=== PATIENT | male | born 1975 | race Caucasian/White ===

== ENCOUNTER → 2022-05-19 | Outpatient (CLI) | payer OTHER, SELFPAY ==
[2022-05-19 15:41] LABS: Vitamin D,25 Hydroxy 45.6 ng/mL
== END | disposition home or self-care (01) ==
LOC: LABSPEC 15:03
DX: E55.9 Vitamin D deficiency, unspecified (principal)
CPT/HCPCS: 82306

== ENCOUNTER → 2022-10-04 | Outpatient (CLI) | payer OTHER, SELFPAY ==
[2022-10-04 09:08] LABS: Vitamin D,25 Hydroxy 26.5 ng/mL
[2022-10-04 10:31] LABS: Cholesterol 159 mg/dL (200); High Density Lipoprotein 48 mg/dL; Triglycerides 218 mg/dL; Very Low Density Lipoprotein 44 mg/dL (5-40)
== END | disposition home or self-care (01) ==
LOC: LAB 10:47
DX: Z00.00 Encounter for general adult medical examination without abnormal findings (principal)
CPT/HCPCS: 36415; 80061; 82306

== ENCOUNTER → 2023-04-25 | Outpatient (CLI) | payer OTHER, SELFPAY ==
[2023-04-25 09:36] LABS: AST(SGOT) 23 U/L (15-37); Alanine Aminotransfer ALT/SGPT 50 U/L (16-61); Albumin, Serum 3.7 g/dL (3.2-5.0); Alkaline Phosphatase 38 U/L (45-117); Anion Gap 5 (5-15); BUN 13 mg/dL (7-18); BUN/Creat Ratio 13.1 RATIO (10-20); Calcium,Total 9.3 mg/dL (8.5-10.1); Chloride 107 mmol/L (98-107); Cholesterol 146 mg/dL (200); Creatinine, Serum 0.99 mg/dL (0.70-1.30); EST Glomerular Filtration Rate 86 mL/min (>60); Est Glom Filt Rate - Afr Amer 105 mL/min (>60); Globulin 3.7 g/dL (2.2-4.2); Glucose 93 mg/dL (74-106); High Density Lipoprotein 44 mg/dL; Potassium 4.4 mmol/L (3.5-5.1); Protein, Total 7.4 g/dL (6.4-8.2); Sodium Level 140 mmol/L (136-145); Triglycerides 219 mg/dL; Very Low Density Lipoprotein 44 mg/dL (5-40)
== END | disposition home or self-care (01) ==
LOC: LABSPEC 08:58
DX: I10 Essential (primary) hypertension (principal); E78.5 Hyperlipidemia, unspecified
CPT/HCPCS: 80053; 80061

== ENCOUNTER → 2024-03-11 | Outpatient (CLI) | payer OTHER, SELFPAY ==
[2024-03-11 10:08] LABS: ALB/GLOB Ratio 0.8 RATIO (0.9-2.4); AST(SGOT) 28 U/L (15-37); Alanine Aminotransfer ALT/SGPT 54 U/L (16-61); Albumin, Serum 3.3 g/dL (3.2-5.0); Alkaline Phosphatase 35 U/L (45-117); Anion Gap 9 (5-15); BUN 12 mg/dL (7-18); BUN/Creat Ratio 12.2 RATIO (10-20); Calcium,Total 9.3 mg/dL (8.5-10.1); Chloride 107 mmol/L (98-107); Cholesterol 129 mg/dL (200); Creatinine, Serum 0.98 mg/dL (0.70-1.30); EST Glomerular Filtration Rate 87 mL/min (>60); Est Glom Filt Rate - Afr Amer 106 mL/min (>60); Globulin 4.4 g/dL (2.2-4.2); Glucose 86 mg/dL (74-106); High Density Lipoprotein 43 mg/dL; PSA,Total - Annual Screen 1.03 ng/mL (0.00-4.00); Potassium 4.5 mmol/L (3.5-5.1); Protein, Total 7.7 g/dL (6.4-8.2); Sodium Level 138 mmol/L (136-145); Triglycerides 92 mg/dL; Very Low Density Lipoprotein 18 mg/dL (5-40)
[2024-03-12 10:19] LABS: CPK Total, Creatine Kinase 132 U/L (39-308)
== END | disposition home or self-care (01) ==
LOC: LABSPEC 08:33
DX: I10 Essential (primary) hypertension (principal); M79.10 Myalgia, unspecified site; E78.5 Hyperlipidemia, unspecified; Z12.5 Encounter for screening for malignant neoplasm of prostate
CPT/HCPCS: 80053; 80061; 82550; 84153; G0103

== ENCOUNTER → 2025-03-11 | Outpatient (CLI) | payer OTHER, SELFPAY ==
[2025-03-11 12:19] LABS: AST(SGOT) 27 U/L (<=37); Alanine Aminotransfer ALT/SGPT 38 U/L (<=46); Albumin, Serum 4.4 g/dL (3.5-5.0); Alkaline Phosphatase 37 U/L (40-129); Anion Gap 15 (5-15); BUN 13 mg/dL (4-19); BUN/Creat Ratio 13.0 RATIO (10-20); Calcium,Total 10.1 mg/dL (7.6-11.0); Carbon Dioxide 22.4 mmol/L (21.0-32.0); Chloride 102 mmol/L (98-108); Cholesterol 149 mg/dL (<=200); Globulin 3.4 g/dL (2.2-4.2); Glucose 92 mg/dL (70-99); Low Density Lipoprotein Calc. 69 mg/dL; PSA,Total - Annual Screen 1.25 ng/mL (0.02-4.00); Potassium 4.6 mmol/L (3.3-5.1); Triglycerides 165 mg/dL; Uric Acid 7.4 mg/dL (3.5-7.2); Very Low Density Lipoprotein 33 mg/dL (5-40); cholesterol:hdl ratio screen 3.14
--- OUTSIDE RECORDS SUMMARY | 2025-03-11 18:13 | XMS RPT_ITS | CCD ---
Author Organization [facility] CliniSymi Care Team Providers Care Hospitality Specialist Name Role Phone Unavailable Primary Care Provider Anna SAMUELS AMUSEMENT RIDE INSPECTOR, MS [place] Primary Care Physician SIL CHESTER, SMOOTH Consulting Unavailable MARTHA CHESTER, DR EBONI Gray Attending Unavailable ABRIL AMUSEMENT RIDE INSPECTOR, MS [place] Primary Care Unavailable MARTHA CHESTER, DR EBONI Gray Attending Unavailable GERMAN GARCÍA, EMERSON Primary Care Unavailjazmine GARCÍA, EMERSON Attending Vik SAMUELS AMUSEMENT RIDE INSPECTOR, MS [place] Primary Care Unavailable Unavailable Primary Care Provider FRANCIS White Referring Unavailable NEY CADET Attending Unavailable NEY CADET Referring Unavailable Care Physician, No Primary Primary Care Unava ilable Assessment, Health Risk Attending Unavaila ble Care Physician, No Primary Primary Care Unava ilable GERMAN GARCÍA, EMERSON Allan Primary Care Unavai labmayuri LOERA DO, FREDDY DUNBAR Attending Unavail able EVARISTO TY, FREDDY DUNBAR Attending Unavail able GERMAN HUSSEIN-EMERSON OLIVO Primary Care Unavai labmayuri LOERA DO, FREDDY DUNBAR Attending Unavail able GERMAN HUSSEIN-GEOVANI, EMERSON Allan Primary Care Unavai lable Medications Current Medications Medication Drug Class(es) Dates Sig (Normalized) Sig (Original) atorvastatin 20 mg oral tablet (2 sources) HMG-CoA Reductase Inhibitor Start: 07-02-2022 atorvastatin 20 mg oral tablet 0 Refill(s) Start Date: 07/02/22 Status: Ordered B Complex 50 oral tablet (2 sources) Start: 09-08-2023 take 1 tablet by mouth once daily B Complex 50 oral tablet Dose = 1 tab(s), Oral, Daily, # 90 tab(s), 0 Refill(s) Start Date: 09/08/23 Status: Ordered escitalopram 10 mg oral tablet (2 sources) Serotonin Reuptake Inhibitor Start: 07-02-2022 escitalopram 10 mg oral tablet Dose : 10 mg = 1 tab(s), qDay, 0 Refill(s) Start Date: 07/02/22 Status: Ordered losartan potassium 100 mg oral tablet (1 source) Angiotensin 2 Receptor Danay Start: 11-01-2023 losartan 100 mg oral tablet Dose : 100 mg = 1 tab(s), Oral, qDay, # 30 tab(s), 3 Refill(s), Pharmacy: [facility]/pharmacy #[id number], 177, cm, 09/12/23 14:57:00 EST, Height, kg, 09/12/23 14:57:00 EST, Dosing Weight Start Date: 11/01/23 Status: Ordered 24 hr metoprolol succinate 100 mg extended release oral tablet (2 sources) beta-Adrenergic Danay Start: 09-12-2023 Toprol-XL 100 mg oral tablet, extended release Dose : 100 mg = 1 tab(s), Oral, qDay, # 90 tab(s), 0 Refill(s), other reason (Rx) Start Date: 09/12/23 Status: Ordered Multivitamin preparation (2 sources) Start: 09-08-2023 take 1 tablet by mouth once daily Multivitamin Dose = 1 tab(s), Oral, Daily, 0 Refill(s) Start Date: 09/08/23 Status: Ordered valsartan 320 mg oral tablet (1 source) Angiotensin 2 Receptor Danay Start: 09-12-2023 valsartan 320 mg oral tablet Dose : 320 mg = 1 tab(s), Oral, qDay, # 90 tab(s), 3 Refill(s), Pharmacy: [facility]/pharmacy #[id number], 177, cm, 09/12/23 14:57:00 EST, Height, kg, 09/12/23 14:57:00 EST, Dosing Weight Start Date: 09/12/23 Status: Ordered Vitamin D2 50 mcg (2000 intl units) oral capsule (2 sources) Start: 09-08-2023 Vitamin D2 50 mcg (2000 intl units) oral capsule Dose : 50 mcg = 1 cap(s), Oral, qDay, with food, # 60 cap(s), 0 Refill(s) Start Date: 09/08/23 Status: Ordered Problems Problem Classification Problem Date Documented Date Episodic/Chronic Anxiety disorders (2 sources) Anxiety 09-08-2023 Chronic Disorders of lipid metabolism (2 sources) Hyperlipidemia 09-11-2023 Chronic Essential hypertension (3 sources) Hypertensive disorder; Translations: [Essential (primary) hypertension] Onset: 03-28-2024 09-08-2023 Chronic Mood disorders (2 sources) Depressive disorder 09-08-2023 Chronic Nonmalignant breast conditions (2 sources) Abscess of the breast and nipple; Translations: [Abscess of the breast and nipple] Onset: 11-03-2023 Episodic Other circulatory disease (2 sources) Postural orthostatic tachycardia syndrome 09-12-2023 Episodic Other lower respiratory disease (4 sources) Dyspnea on exertion 09-08-2023 Episodic Other nutritional; endocrine; and metabolic disorders (2 sources) Body mass index 30+ - obesity 09-11-2023 Chronic Residual codes; unclassified (2 sources) Obstructive sleep apnea syndrome 09-08-2023 Chronic Results Test Name Value Interpretation Reference Range Facility MRI SPINE CERVICAL W/O CONTR Cheri 01-14-2025 MRI SPINE CERVICAL W/O CONTRAST ORIGINAL EXAMINATION: MRI OF THE CERVICAL SPINE WITHOUT CONTRAST 01/14/2025 7:34 am TECHNIQUE: Multiplanar multisequence MRI of the cervical spine was performed without the administration of intravenous contrast. COMPARISON: Cervical spine 04/30/2024. HISTORY: ORDERING SYSTEM PROVIDED HISTORY: Reason for Exam: Cervical radiculopathy 18 MO ELE NUMBNESS WORSE RT SIDE, NO PRIOR SURGERIES, NO CANCER LB T/A FINDINGS: BONES/ALIGNMENT: There is normal alignment of the spine. The vertebral body heights are maintained. The bone marrow signal appears unremarkable. SPINAL CORD: No abnormal cord signal is seen. SOFT TISSUES: No paraspinal mass identified. C2-C3: There is no significant disc protrusion, spinal canal stenosis or neural foraminal narrowing. C3-C4: There is no significant disc protrusion, spinal canal stenosis or neural foraminal narrowing. C4-C5: There is no significant disc protrusion, spinal canal stenosis or neural foraminal narrowing. C5-C6: There is no significant disc protrusion, spinal canal stenosis or neural foraminal narrowing. C6-C7: Broad-based 2 mm herniation of disc material eccentric to the right partially effacing the ventral CSF space without nerve root or cord impingement. C7-T1: There is no significant disc protrusion, spinal canal stenosis or neural foraminal narrowing. IMPRESSION: Small right paracentral herniation of disc material at C6-C7. Interpreted by: Jeff Ren Preliminary Report By: Jeff Ren Electronically signed By Jeff Ren Dictated Date: 01/14/2025 11:37:40 AM Prelim Date: 01/14/2025 11:39:25 AM Sign Date: 01/14/2025 11:39:25 AM Ordering Provider: FREDDY LOERA [facility] CBC-Complete Blood Cnt No Di ffon 10-08-2024 Erythrocyte distribution width (RBC) [Ratio] 13.1 % Normal 11.6-14.6 [facility] Comment on above: Performed By: #### L100.0500, L500.4100, L500.4050, [id number] #### [facility] [address] [place], [address] Hematocrit (Bld) [Volume fraction] 41.9 % Normal 40-54 [facility] Comment on above: Performed By: #### L100.0500, L500.4100, L500.4050, [id number] #### [facility] [address] [place], [address] Hemoglobin (Bld) [Mass/Vol] 13.6 g/dL Normal 13.0-16.5 [facility] Comment on above: Performed By: #### L100.0500, L500.4100, L500.4050, [id number] #### [facility] [address] [place], [address] MCH (RBC) [Entitic mass] 27.8 pg Normal 27.0-32.0 [facility] Comment on above: Performed By: #### L100.0500, L500.4100, L500.4050, [id number] #### [facility] [address] [place], [address] MCHC (RBC) [Mass/Vol] 32.5 g/dL Normal 32-36 [facility] Comment on above: Performed By: #### L100.0500, L500.4100, L500.4050, [id number] #### [facility] [address] [place], [address] MCV (RBC) [Entitic vol] 85.7 fL Normal 80-94 [facility] Comment on above: Performed By: #### L100.0500, L500.4100, L500.4050, [id number] #### [facility] [address] [place], [address] Platelet mean volume (Bld) [Entitic vol] 9.2 fL Normal 6.2-12.0 [facility] Comment on above: Performed By: #### L100.0500, L500.4100, L500.4050, [id number] #### [facility] [address] [place], [address] Platelets (Bld) [#/Vol] 291 10*3/uL Normal 150-450 [facility] Comment on above: Performed By: #### L100.0500, L500.4100, L500.4050, [id number] #### [facility] [address] [place], [address] RBC (Bld) [#/Vol] 4.89 10*6/uL Normal 4.6-6.2 [facility] Comment on above: Performed By: #### L100.0500, L500.4100, L500.4050, [id number] #### [facility] [address] [place], [address] RDW SD 40.3 fl Normal 35.1-43.9 [facility] Comment on above: Performed By: #### L100.0500, L500.4100, L500.4050, [id number] #### [facility] [address] [place], [address] WBC (Bld) [#/Vol] 9.3 10*3/uL Normal 4.4-11.0 [facility] Comment on above: Performed By: #### L100.0500, L500.4100, L500.4050, [id number] #### [facility] [address] [place], [address] Comprehensive Metabolic Prof ilon 10-08-2024 Albumin [Mass/Vol] 3.9 g/dL Normal 3.2-5.0 [facility] Comment on above: Performed By: #### L100.0500, L500.4100, L500.4050, [id number] #### [facility] [address] [place], [address] Albumin/Globul in [Mass ratio] 1.1 {ratio} Normal 0.9-2.4 [facility] Comment on above: Performed By: #### L100.0500, L500.4100, L500.4050, [id number] #### [facility] [address] [place], [address] ALK P 37 U/L Low 45-117 [facility] Comment on above: Performed By: #### L100.0500, L500.4100, L500.4050, [id number] #### [facility] [address] [place], [address] ALT [Catalytic activity/Vol] 59 U/L Normal 16-61 [facility] Comment on above: Performed By: #### L100.0500, L500.4100, L500.4050, [id number] #### [facility] [address] [place], [address] AST [Catalytic activity/Vol] 32 U/L Normal 15-37 [facility] Comment on above: Performed By: #### L100.0500, L500.4100, L500.4050, [id number] #### [facility] [address] [place], [address] Bilirubin [Mass/Vol] 0.40 mg/dL Normal 0.20-1.00 [facility] Comment on above: Result Comment: For patients on eltrombo pag therapy, use of Dimension [place] TBIL is not recommended. Performed By: #### L 100.0500, L500.4100, L500.4050, [id number] #### [facility] [address] [place], [address] BUN/CRE 14.3 RATIO Normal 10-20 [facility] Comment on above: Performed By: #### L100.0500, L500.4100, L500.4050, [id number] #### [facility] [address] [place], [address] CA,Total 9.1 mg/dL Normal 8.5-10.1 [facility] Comment on above: Performed By: #### L100.0500, L500.4100, L500.4050, [id number] #### [facility] [address] [place], [address] Chloride [Moles/Vol] 104 mmol/L Normal 98-107 [facility] Comment on above: Performed By: #### L100.0500, L500.4100, L500.4050, [id number] #### [facility] [address] [place], [address] CO2 [Moles/Vol] 24.0 mmol/L Normal 21.0-32.0 [facility] Comment on above: Performed By: #### L100.0500, L500.4100, L500.4050, [id number] #### [facility] [address] [place], [address] Creatinine [Mass/Vol] 0.98 mg/dL Normal 0.70-1.30 [facility] Comment on above: Result Comment: The validity of the calc ulated GFR GFRAA in patients over 70 years has not been determined. Clinical correlation is essential. Performed By: #### L 100.0500, L500.4100, L500.4050, [id number] #### [facility] [address] [place], [address] EST GFR - AA 106 mL/min Normal >60 [facility] Comment on above: Result Comment: GFR Roderick c Performed By: #### L 100.0500, L500.4100, L500.4050, [id number] #### [facility] [address] [place], [address] GAP 11 Normal 5-15 [facility] Comment on above: Performed By: #### L100.0500, L500.4100, L500.4050, [id number] #### [facility] [address] [place], [address] GFR/1.73 sq M.predicted among non-blacks MDRD (S/P/Bld) [Vol rate/Area] 87 mL/min/{1.73_m2} Normal >60 [facility] Comment on above: Result Comment: Non- GFR Calc Performed By: #### L 100.0500, L500.4100, L500.4050, [id number] #### [facility] [address] [place], [address] Globulin (S) [Mass/Vol] 3.7 g/dL Normal 2.2-4.2 [facility] Comment on above: Performed By: #### L100.0500, L500.4100, L500.4050, [id number] #### [facility] [address] [place], [address] Glucose [Mass/Vol] 84 mg/dL Normal 74-106 [facility] Comment on above: Performed By: #### L100.0500, L500.4100, L500.4050, [id number] #### [facility] [address] [place], [address] Potassium [Moles/Vol] 4.2 mmol/L Normal 3.5-5.1 [facility] Comment on above: Performed By: #### L100.0500, L500.4100, L500.4050, [id number] #### [facility] [address] [place], [address] Sodium [Moles/Vol] 139 mmol/L Normal 136-145 [facility] Comment on above: Performed By: #### L100.0500, L500.4100, L500.4050, [id number] #### [facility] [address] [place], [address] T PROT 7.6 g/dL Normal 6.4-8.2 [facility] Comment on above: Performed By: #### L100.0500, L500.4100, L500.4050, [id number] #### [facility] [address] [place], [address] Urea nitrogen [Mass/Vol] 14 mg/dL Normal 7-18 [facility] Comment on above: Performed By: #### L100.0500, L500.4100, L500.4050, [id number] #### [facility] [address] [place], [address] Hemoglobin A1con 10-08-2024 HbA1c (Bld) [Mass fraction] 5.7 % High 3.8-5.6 [facility] Comment on above: Result Comment: Normal < 5.7 % Prediabetic 5.7 - 6.4 % Diabetic >or= 6.5 % Please note range changes. Performed By: #### L 100.0500, L500.4100, L500.4050, L501.9985 #### [facility] [address] [place], [address] Lipid Profileon 10-08-2024 Cholesterol [Mass/Vol] 156 mg/dL Normal 200 [facility] Comment on above: Result Comment: <200 mg/dL Desirable 200-240 mg/dL Borderline >240 mg/dL High Risk Performed By: #### L 100.0500, L500.4100, L500.4050, [id number] #### [facility] [address] [place], [address] Cholesterol in HDL [Mass/Vol] 54 mg/dL Normal [facility] Comment on above: Result Comment: The drugs N-Acetylcystei ne and Metamizole may falsely depress this assay. Reference Range HDL <40 mg/dL Low HDL Cholesterol HDL >or= 60 mg/dL High HDL Cholesterol Performed By: #### L 100.0500, L500.4100, L500.4050, [id number] #### [facility] [address] [place], [address] Cholesterol in LDL [Mass/Vol] 68 mg/dL Normal 0-130 [facility] Comment on above: Performed By: #### L100.0500, L500.4100, L500.4050, [id number] #### [facility] [address] [place], [address] Cholesterol in VLDL [Mass/Vol] 34 mg/dL Normal 5-40 [facility] Comment on above: Performed By: #### L100.0500, L500.4100, L500.4050, [id number] #### [facility] [address] [place], [address] Triglyceride [Mass/Vol] 170 mg/dL Normal [facility] Comment on above: Result Comment: The drugs N-Acetylcystei ne and Metamizole may falsely depress this assay. Serum Triglycerides Reference Interval Normal <150 mg/dL Borderline high 150 - 199 mg/dL High 200 - 499 mg/dL Very High > or = 500 mg/dL Performed By: #### L 100.0500, L500.4100, L500.4050, L501.9985 #### [facility] [address] [place], [place], [address] XR FOOT 3V AP/LAT/OBL LTon 0 09-02-2024 XR FOOT 3V AP/LAT/OBL LT * * *Final Report* * * DATE OF EXAM: Sep 02 2024 5:39PM RNX [id number] - XR FOOT 3V AP/LAT/OBL LT / PROCEDURE REASON: LT GREAT TOE PAIN; L FOOT SWELLING * * * * Physician Interpretation * * * * XR FOOT 3V AP/LAT/OBL LT Ordering Physician: FRANCIS ASKEW Clinical Statement: Pain and swelling great toe FINDINGS: No acute fracture or dislocation. The alignment is normal. No erosive arthropathy or significant degenerative change. There is soft tissue swelling of the great toe. No soft tissue gas, radiopaque foreign body, or bone erosion. Posterior and plantar calcaneal enthesopathy. IMPRESSION: No acute osseous abnormality or significant degenerative change. Soft tissue swelling great toe. Business Continuity Strategy Director: KANDI Transcribe Date/Time: Sep 05 2024 4:30A Dictated by : DIONNE WHALEN MD This examination was interpreted and the report reviewed and electronically signed by: DIONNE WHALEN MD on Sep 05 2024 4:31AM EST [id number] Normal [facility] CPK Total, Creatine Kinaseon 03-12-2024 CPK TOTAL 132 U/L Normal 39-308 [facility] Comment on above: Performed By: #### L500.4100, L500.4050, L501.3620, L501.9910 #### [facility] [address] [place], [address] Comprehensive Metabolic Prof ilon 03-11-2024 Albumin [Mass/Vol] 3.3 g/dL Normal 3.2-5.0 [facility] Comment on above: Performed By: #### L500.4100, L500.4050, L501.3620, L501.9910 #### [facility] [address] [place], [address] Albumin/Globul in [Mass ratio] 0.8 {ratio} Low 0.9-2.4 [facility] Comment on above: Performed By: #### L500.4100, L500.4050, L501.3620, L501.9910 #### [facility] [address] [place], [address] ALK P 35 U/L Low 45-117 [facility] Comment on above: Performed By: #### L500.4100, L500.4050, L501.3620, L501.9910 #### [facility] [address] [place], [address] ALT [Catalytic activity/Vol] 54 U/L Normal 16-61 [facility] Comment on above: Performed By: #### L500.4100, L500.4050, L501.3620, L501.9910 #### [facility] [address] [place], [address] AST [Catalytic activity/Vol] 28 U/L Normal 15-37 [facility] Comment on above: Performed By: #### L500.4100, L500.4050, L501.3620, L501.9910 #### [facility] [address] [place], [address] Bilirubin [Mass/Vol] 0.50 mg/dL Normal 0.20-1.00 [facility] Comment on above: Result Comment: For patients on eltrombo pag therapy, use of Dimension [place] TBIL is not recommended. Performed By: #### L 500.4100, L500.4050, L501.3620, L501.9910 #### [facility] [address] [place], [address] BUN/CRE 12.2 RATIO Normal 10-20 [facility] Comment on above: Performed By: #### L500.4100, L500.4050, L501.3620, L501.9910 #### [facility] [address] [place], [address] CA,Total 9.3 mg/dL Normal 8.5-10.1 [facility] Comment on above: Performed By: #### L500.4100, L500.4050, L501.3620, L501.9910 #### [facility] [address] [place], [address] Chloride [Moles/Vol] 107 mmol/L Normal 98-107 [facility] Comment on above: Performed By: #### L500.4100, L500.4050, L501.3620, L501.9910 #### [facility] [address] [place], [address] CO2 [Moles/Vol] 22.0 mmol/L Normal 21.0-32.0 [facility] Comment on above: Performed By: #### L500.4100, L500.4050, L501.3620, L501.9910 #### [facility] [address] [place], [address] Creatinine [Mass/Vol] 0.98 mg/dL Normal 0.70-1.30 [facility] Comment on above: Result Comment: The validity of the calc ulated GFR GFRAA in patients over 70 years has not been determined. Clinical correlation is essential. Performed By: #### L 500.4100, L500.4050, L501.3620, L501.9910 #### [facility] [address] [place], [address] EST GFR - AA 106 mL/min Normal >60 [facility] Comment on above: Result Comment: GFR Roderick c Performed By: #### L 500.4100, L500.4050, L501.3620, L501.9910 #### [facility] [address] [place], [address] GAP 9 Normal 5-15 [facility] Comment on above: Performed By: #### L500.4100, L500.4050, L501.3620, L501.9910 #### [facility] [address] [place], [address] GFR/1.73 sq M.predicted among non-blacks MDRD (S/P/Bld) [Vol rate/Area] 87 mL/min/{1.73_m2} Normal >60 [facility] Comment on above: Result Comment: Non- GFR Calc Performed By: #### L 500.4100, L500.4050, L501.3620, L501.9910 #### [facility] [address] [place], [address] Globulin (S) [Mass/Vol] 4.4 g/dL High 2.2-4.2 [facility] Comment on above: Performed By: #### L500.4100, L500.4050, L501.3620, L501.9910 #### [facility] [address] [place], [address] Glucose [Mass/Vol] 86 mg/dL Normal 74-106 [facility] Comment on above: Performed By: #### L500.4100, L500.4050, L501.3620, L501.9910 #### [facility] [address] [place], [address] Potassium [Moles/Vol] 4.5 mmol/L Normal 3.5-5.1 [facility] Comment on above: Performed By: #### L500.4100, L500.4050, L501.3620, L501.9910 #### [facility] [address] [place], [address] Sodium [Moles/Vol] 138 mmol/L Normal 136-145 [facility] Comment on above: Performed By: #### L500.4100, L500.4050, L501.3620, L501.9910 #### [facility] [address] [place], [address] T PROT 7.7 g/dL Normal 6.4-8.2 [facility] Comment on above: Performed By: #### L500.4100, L500.4050, L501.3620, L501.9910 #### [facility] [address] [place], [address] Urea nitrogen [Mass/Vol] 12 mg/dL Normal 7-18 [facility] Comment on above: Performed By: #### L500.4100, L500.4050, L501.3620, L501.9910 #### [facility] [address] [place], [address] Lipid Profileon 03-11-2024 Cholesterol [Mass/Vol] 129 mg/dL Normal 200 [facility] Comment on above: Result Comment: <200 mg/dL Desirable 200-240 mg/dL Borderline >240 mg/dL High Risk Performed By: #### L 500.4100, L500.4050, L501.3620, L501.9910 #### [facility] [address] [place], [address] Cholesterol in HDL [Mass/Vol] 43 mg/dL Normal [facility] Comment on above: Result Comment: The drugs N-Acetylcystei ne and Metamizole may falsely depress this assay. Reference Range HDL <40 mg/dL Low HDL Cholesterol HDL >or= 60 mg/dL High HDL Cholesterol Performed By: #### L 500.4100, L500.4050, L501.3620, L501.9910 #### [facility] [address] [place], [address] Cholesterol in LDL [Mass/Vol] 68 mg/dL Normal 0-130 [facility] Comment on above: Performed By: #### L500.4100, L500.4050, L501.3620, L501.9910 #### [facility] [address] [place], [address] Cholesterol in VLDL [Mass/Vol] 18 mg/dL Normal 5-40 [facility] Comment on above: Performed By: #### L500.4100, L500.4050, L501.3620, L501.9910 #### [facility] [address] [place], [address] Triglyceride [Mass/Vol] 92 mg/dL Normal [facility] Comment on above: Result Comment: The drugs N-Acetylcystei ne and Metamizole may falsely depress this assay. Serum Triglycerides Reference Interval Normal <150 mg/dL Borderline high 150 - 199 mg/dL High 200 - 499 mg/dL Very High > or = 500 mg/dL Performed By: #### L 500.4100, L500.4050, L501.3620, L501.9910 #### [facility] [address] [place], [address] PSA,Total - Annual Screenon 03-11-2024 PSA,TOT SCREEN 1.03 ng/mL Normal 0.00-4.00 [facility] Comment on above: Result Comment: This test was performed using the TPSA assay method for the [employer] chemistry system. Values obtained with different assay methods cannot be used interchangably. When changing PSA assays in the course of monitoring a patient, additional sequential testing should be carried out to confirm baseline values. Performed By: #### L 500.4100, L500.4050, L501.3620, L501.9910 #### [facility] [address] [place], [address] MA MAMMOGRAM DIAGNOSTIC BILA TERAL W/TOMOon 03-08-2024 MA MAMMOGRAM DIAGNOSTIC BILATERAL W/JEREMY ORIGINAL FROM: [facility] [address] [place] [address] PROCEDURE FOR: VERÓNICA Simon [place] [address] Home: PID#: [id number] Exam#: [id number] : 1975 Age: 47 TO: EMERSON PORTER [facility] [place] [address] [address] EXAMINATION: DIAGNOSTIC BILATERAL MAMMOGRAM WITH TOMOSYNTHESIS, 11/03/2023 8:41 am TECHNIQUE: Tomosynthesis was performed as part of the diagnostic bilateral mammogram. 2D standard and 3D tomosynthesis combination imaging performed. Current study was also evaluated with a Computer Aided Detection (CAD) system. COMPARISON: None. HISTORY: ORDERING SYSTEM PROVIDED HISTORY: Reason for Exam: ABSCESS OF LEFT BREAST AND NIPPLE FINDINGS: BREAST DENSITY: Predominantly Fatty There is gynecomastia within the left breast which likely explains the patient's symptoms. No additional significant masses, calcifications, or other findings. IMPRESSION: No mammographic evidence of malignancy. Left breast gynecomastia which likely explains the patient's symptoms.Clinical follow up is recommended. I have personally reviewed the images of this examination and agree with the resident's findings and interpretations. BIRADS: MAMMOGRAM BI-RADS: 2: Benign finding RECALL: none RECALL TYPE: mammo LETTER SENT: Gynecomastia Interpreted by: Ngozi Mccallum MD Preliminary Report By: Theo Catalan Electronically signed By Ngozi Mccallum MD Dictated Date: 11/03/2023 10:27:17 AM Prelim Date: 11/03/2023 6:53:00 PM Sign Date: 11/03/2023 6:53:00 PM Ordering Provider: EMERSON PORTER CLINICAL: PALPABLE LUMP LEFT BREAST. FOCAL PAIN LEFT BREAST. BASELINE. Account Solutions Analyst: CLEOPATRA TURNER(Khoi)(M) letter sent: Gynecomastia Mammogram BI-RADS: 2 Benign Normal [facility] ([place]) Basophil percentageon 2022 Bilirubin [Mass/Vol] 0.40 mg/dL 0.20-1.00 [facility] Comment on above: For patients on eltrombopag therapy, use of Dimension [place] TBIL is not recommended. Chloride [Moles/Vol] 107 mmol/L 98-107 [facility] Cholesterol [Mass/Vol] 146 mg/dL <200 [facility] Comment on above: <200 mg/dL Desirable 200-240 mg/dL Borde rline >240 mg/dL High Risk Glucose [Mass/Vol] 93 mg/dL 74-106 [facility] Potassium [Moles/Vol] 4.4 mmol/L 3.5-5.1 [facility] Protein [Mass/Vol] 7.4 g/dL 6.4-8.2 [facility] Sodium [Moles/Vol] 140 mmol/L 136-145 [facility] Triglyceride [Mass/Vol] 219 mg/dL <199 [facility] Comment on above: The drugs N-Acetylcysteine and Metamizol e may falsely depress this assay.Serum Triglycerides Reference Interval Normal <150 mg/dL Borderline high 150 - 199 mg/dL High 200 - 499 mg/dL Very High > or = 500 mg/dL Laboratory - Chemistry and C hemistry - challengeon 04-25-2023 ALP [Catalytic activity/Vol] 38 U/L 45-117 [facility] ALT [Catalytic activity/Vol] 50 U/L 16-61 [facility] CO2 [Moles/Vol] 28.0 mmol/L 21.0-32.0 [facility] Globulin (S) [Mass/Vol] 3.7 g/dL 2.2-4.2 [facility] Urea nitrogen/Creat inine [Mass ratio] 13.1 mg/mg 10-20 [facility] No Panel Informationon 04-25 Estimated GFR (MDRD) Amer 105 mL/min >60 [facility] Comment on above: GFR Calc Estimated GFR (MDRD) Non-Af Amer 86 mL/min >60 [facility] Comment on above: Non- GFR Calc Serum or plasma albumin esperanza urement (mass/volume)on 04-25-2023 Albumin [Mass/Vol] 3.7 g/dL 3.2-5.0 [facility] Serum or plasma albumin/glob ulin mass ratioon 04-25-2023 Albumin/Globul in [Mass ratio] 1.0 {ratio} 0.9-2.4 [facility] Serum or plasma calcium esperanza urement (mass/volume)on 04-25-2023 Calcium [Mass/Vol] 9.3 mg/dL 8.5-10.1 [facility] Serum or plasma cholesterol in HDL measurement (mass/volume)on 04-25-2023 Cholesterol in HDL [Mass/Vol] 44 mg/dL >40 [facility] Comment on above: The drugs N-Acetylcysteine and Metamizol e may falsely depress this assay. Reference Range HDL <40 mg/dL Low HDL Cholesterol HDL >or= 60 mg/dL High HDL Cholesterol Serum or plasma cholesterol in VLDL measurement (mass/volume)on 04-25-2023 Cholesterol in VLDL [Mass/Vol] 44 mg/dL 5-40 [facility] Serum or plasma creatinine m easurement (mass/volume)on 04-25-2023 Creatinine [Mass/Vol] 0.99 mg/dL 0.70-1.30 [facility] Comment on above: The validity of the calculated GFR & GFR AA in patients over 70 years has not been determined. Clinical correlation is essential. Serum or plasma low density lipoprotein (LDL) cholesterol measurement (mass/volume)on 04-25-2023 Cholesterol in LDL [Mass/Vol] 58 mg/dL 0-130 [facility] Serum or plasma urea nitroge n measurement (mass/volume)on 04-25-2023 Urea nitrogen [Mass/Vol] 13 mg/dL 7-18 [facility] Thin prep Papanicolaou smear with manual screeningon 04-25-2023 Thin prep Papanicolaou smear with manual screening 23 U/L 15-37 [facility] Thin prep Papanicolaou smear with manual screening 5 5-15 [facility] No Panel Informationon 05-19 Vitamin D 25-Hydroxy 45.6 ng/mL [facility] Work Phone: Comment on above: Vitamin D 25(OH) Status Range Deficiency <20 ng/mL (50nmol/L) Insufficiency 20 - 30 ng/mL (50 - 75 nmol/L) Sufficiency 30 - 100 ng/mL (75 - 250 nmol/L) Toxicity >100 ng/mL (>250 nmol/L) PHCon 05-28-2021 [facility] DATE OF SERVICE: 08/2020 SUBJECTIVE: This is a 45-year-old here today with cough, runny nose, and a headache for 2 or 3 days. Feels like there is drainage in the back of the throat into his chest. Not really coughing up phlegm. He is not wheezing, short of breath. No fever or chills. He did have a COVID vaccine and had a negative COVID test at home yesterday. No known COVID exposures. PAST MEDICAL HISTORY: Significant for some hypertension. MEDICATIONS: 1. Metoprolol. 2. Atorvastatin. 3. Citalopram. SOCIAL HISTORY: He is a nonsmoker. Drinks alcohol occasionally. FAMILY HISTORY: Hypertension. OBJECTIVE: Vitals are stable. He is afebrile. TMs clear. Nares clear. Pharynx clear. Neck is supple. No lymphadenopathy. Lungs are clear. No wheezes, rales, or rhonchi. Heart: Regular. No murmurs, rubs, or gallops. [facility] PATIENT NAME: VERÓNICA HOLLOWAY [facility] [address] MEDICAL REC #: [id number] [place] [address] [facility]ARE PHYSICIAN IMPRESSION: Viral upper respiratory infection. PLAN: Bromfed DM syrup 2 teaspoons q.6 h. p.r.n., Tylenol, Motrin, rest, fluids, and follow up with primary care if not improving in 4 to 5 days. Yanick Salgado MD /[id number] SSI File#: [id number] END OF DOCUMENT / CHANGE LOG FOLLOWS Last Edited By Elec. Signed By Yanick Salgado MD #Yanick Joseph MD #MANAN on 06/01/2021 08:34 ET on 06/01/2021 08:34 ET Revision Number - 2 Verified/Reviewed by 06/01/21 0835 MANAN [facility] PATIENT NAME: VERÓNICA HOLLOWAY [address] [facility] [address] MEDICAL REC #: [id number] [place] [address] [facility] REPORT STATCARE PHYSICIAN Normal [facility] REPORT [facility] Encounters Encounter Date Encounter Type Care Provider Facility Start: 02-06-2025 ambulatory EMERSON Arthur [employer] Facility:A Start: 01-14-2025 End: 01-14-2025 ambulatory FREDDY LOERA DO Facility:A Start: 11-29-2024 ambulatory FREDDY LOERA DO Facility:A Start: 10-08-2024 ambulatory Health Risk Assessment Facility:[facility] Start: 09-02-2024 ambulatory FRANCIS ASKEW Faci lity:[id number] Start: 09-02-2024 End: 09-02-2024 Subsequent hospital visit by physician Brianne [facility] Work Phone: [facility] Start: 03-11-2024 End: 03-11-2024 ambulatory NEY CADET Facility:[facility] Start: 01-04-2024 End: 01-05-[address] EBONI THOMAS MD Facility:A Start: 11-03-2023 End: 11-04-2023 ambulatory EMERSON PORTER [employer] Facility:A Start: 11-03-2023 End: 11-03-2023 Patient encounter procedure EMERSON PORTER [employer] [facility] Start: 09-29-2023 End: 09-30-2023 ambulatory SMOOTH MUJICA MD Facility:A Start: 09-29-2023 End: 09-29-[address] EBONI THOMAS MD [facility] Start: 04-25-2023 End: 04-25-2023 ambulatory [facility] Work Phone: Start: 04-25-2023 End: 04-25-2023 Patient encounter procedure [facility] Spec[facility] Work Phone: Start: 05-19-2022 End: 05-19-2022 ambulatory [facility] Work Phone: Start: 05-19-2022 End: 05-19-2022 Patient encounter procedure [facility] Start: 05-31-2021 Patient encounter procedure Yanick Salgado MD Work Phone: [facility] Start: 05-31-2021 Progress Note Yanick adams MD Work Phone: [facility] Plan of Treatment Date Care Activity Detail Author Start: 04-28-2024 Covid-19 Vaccine () Covid-19 Vaccine () [facility] Start: 04-28-2024 Influenza vaccination Influenza Vacc ine (#1) [facility] Start: 2022 Diabetes Screening Diabetes Screenin g [facility] Start: 2022 Screening for malign ant neoplasm of colon [facility] Start: 06-13-2019 Urine microalbumin profile DTa P,Tdap,Td Vaccine (2 - Td or Tdap) [facility] Start: 2012 Lipid panel Lipid Screening [facility] Start: 1996 Hepatitis B Vaccine (1 of 3 - 19+ 3-dose series) Hepatitis B Vaccine (1 of 3 - 19+ 3-dose series) [facility] Start: 12-13-1995 Anxiety Screening Anxiety Screening [facility] Start: 12-13-1995 Depression Screening Depression Scre enchase [facility] Start: 12-13-1995 Hepatitis C screening Hepatitis C Sc adela [facility] Start: 12-13-1995 HIV screening HIV Screening [facility] Immunizations Immunization Date Immunization Notes Care Provider Fa cility 06-29-2022 influenza virus vacc ine, unspecified formulation [facility] [place] Work Phone: [facility] Payers Date Payer Category Payer Unknown MMO MMO MHS [id number] 2024-Present [phone] [address] [place] [address] Indemnity [id number] 2024 Self-pay 2023 Unknown [id number] 1975 Unknown [id number] 1975 Unknown [id number] 1975 Unknown [id number] 1975 Unknown [id number] 1975 Unknown [id number] 1975 Unknown [id number] Unknown [id number] Unknown [id number] Social History Date Type Detail Facility Tobacco smoking status NHIS Tobacco smoking consumption unknown [facility] Start: 1975 Sex Assigned At Not on file [facility] Start: 1975 Sex Assigned At Male [facility] Start: 09-12-2023 Tobacco smoking status Never smoked tobacco (finding) [facility] Gender identity Not on file [facility] History of Present illness Narrative 09-02-2024 Sheela Feng RT(R) - 09/02/2024 5:40 PM EST Note Date & Type Note Facility 09-02-2024 History of Presen t illness Narrative Radiology Service Progress Note PATIENT NAME: Verónica Holloway DATE OF SERVICE: September 02, 2024 TIME: 5:40 PM PATIENT IDENTITY VERIFICATION COMPLETED USING TWO (2) IDENTIFIERS: Name and Date of confirmed by patient verbally. FALL SCREENING: Has the patient had 2 falls in the last year or 1 fall with injury or currently using an Ambulatory Assistive Device (Walker, Cane, Wheelchair, Crutches, etc.)? No PATIENT GENDER DATA: Male PATIENT RELEVANT IMPLANT DATA REVIEWED: Not Applicable PATIENT PRESENTS WITH AN IMPLANTABLE OR ATTACHED RAIL WALKER: No RADIOLOGY DEPARTMENT: General X-ray: Exam(s) Completed: Lower Extremity X-Ray(s): Foot, Left PERIPHERAL IV DATA: Not applicable SIGNED BY: RT Clinton(Khoi) September 02, 2024 5:40 PM documented in this encounter [facility] Progress note 09-02-2024 Note Date & Type Note Facility 09-02-2024 Note HNO ID: [id number] Author: SHEELA FENG RT(Khoi) Service: Radiology Author Type: Technologist Type: Progress Notes Filed: 09/02/2024 17:40 Note Text: Radiology Service Progress Note PATIENT NAME: Verónica Holloway DATE OF SERVICE: September 02, 2024 TIME: 5:40 PM PATIENT IDENTITY VERIFICATION COMPLETED USING TWO (2) IDENTIFIERS: Name and Date of confirmed by patient verbally. FALL SCREENING: Has the patient had 2 falls in the last year or 1 fall with injury or currently using an Ambulatory Assistive Device (Walker, Cane, Wheelchair, Crutches, etc.)? No PATIENT GENDER DATA: Male PATIENT RELEVANT IMPLANT DATA REVIEWED: Not Applicable PATIENT PRESENTS WITH AN IMPLANTABLE OR ATTACHED RAIL WALKER: No RADIOLOGY DEPARTMENT: General X-ray: Exam(s) Completed: Lower Extremity X-Ray(s): Foot, Left PERIPHERAL IV DATA: Not applicable SIGNED BY: RT Clinton(R) September 02, 2024 5:40 PM [facility] Clinical Note 09-29-2023 Note Date & Type Note Facility 09-29-2023 Note Date of Service 09/29/2023 Procedure: Exercise treadmill stress test ------- Patient underwent exercise treadmill stress test using Doc protocol. Patient achieved 4 stages in 9:30 minutes. Patient achieved 10.90 METS which is average functional capacity given patient's age and gender. Exercise as terminated due to SOB and leg fatigue. Patient had a baseline heart rate of 72 bpm and it peaked at 173 bpm at peak exercise, which is 98% of the predicted maximal heart rate. The heart rate recovery was normal. Patient had a resting blood pressure of 132/78 mmHg and this peaked at 164/80 mmHg with exercise, which is a normal response. The patient did experience SOB and leg fatigue, which all resolved at the end of the test. Patient's baseline EKG showed normal sinus rhythm with no ischemic ST segment changes. During the stress, there were no EKG changes diagnostic of ischemia. ------- Impression: 1. ECG portion of the exercise stress test is negative for inducible ischemia. 2. Appropriate heart rate and blood pressure response with exercise. 3. Patient did experience some shortness of breath during the protocol. Patient did not report any significant chest pain. 4. No significant arrhythmias noted during the exercise stress test. 5. Average functional capacity. See addendum to this note by the attending physician for additional comments. Digitally Signed by SMOOTH MUJICA MD on 09/29/2023 03:29 PM Digitally Signed by BETTINA VALERIO MD [facility] History of Present illness Narrative 05-31-2021 Yanick Salgado MD - 05/31/2021 12:57 PM EDT Note Date & Type Note Facility 05-31-2021 History of Present illness Narrative DATE OF SERVICE: 05/28/2021 SUBJECTIVE: This is a 45-year-old here today with cough, runny nose, and a headache for 2 or 3 days. Feels like there is drainage in the back of the throat into his chest. Not really coughing up phlegm. He is not wheezing, short of breath. No fever or chills. He did have a COVID vaccine and had a negative COVID test at home yesterday. No known COVID exposures. PAST MEDICAL HISTORY: Significant for some hypertension. MEDICATIONS: 1. Metoprolol. 2. Atorvastatin. 3. Citalopram. SOCIAL HISTORY: He is a nonsmoker. Drinks alcohol occasionally. FAMILY HISTORY: Hypertension. OBJECTIVE: Vitals are stable. He is afebrile. TMs clear. Nares clear. Pharynx clear. Neck is supple. No lymphadenopathy. Lungs are clear. No wheezes, rales, or rhonchi. Heart: Regular. No murmurs, rubs, or gallops. IMPRESSION: Viral upper respiratory infection. PLAN: Bromfed DM syrup 2 teaspoons q.6 h. p.r.n., Tylenol, Motrin, rest, fluids, and follow up with primary care if not improving in 4 to 5 days. Yanick Salgado MD /[id number] SSI File#: [id number] END OF DOCUMENT / CHANGE LOG FOLLOWS Last Edited By Elec. Signed By Yanick Salgado MD #HUDMA Yanick Salgado MD #HUDMA on 06/01/2021 08:34 ET on 06/01/2021 08:34 ET Revision Number - 2 ^^^ Verified/Reviewed by 06/01/21 Iveth HINKLE [facility] PATIENT NAME: VERÓNICA HOLLOWAY [address] [facility] [address] MEDICAL REC #: [id number] [place] [address] [facility] STATCARE PHYSICIAN documented in this encounter [facility] Evaluation + Plan note Radiology Note Date & Type Note Facility Evaluation + Plan note Future Appointments Appointment Date:10/31/2023 08:00:00 AM Scheduled Provider: Location:[facility] Appointment Type:MA Mammogram Diagnostic Left w/ Jeremy Appointment Date:10/31/2023 08:30:00 AM Scheduled Provider: Location:[facility] Appointment Type:US Breast Left Limited Future Scheduled TestsMA Mammo Diagnostic Left w/ Jeremy 10/31/23US Breast Left Limited 09/20/23US Breast Left Limited 10/31/23 [facility] Evaluation + Plan note Radiology Note Date & Type Note Facility Evaluation + Plan note Future Appointments Appointment Date:12/06/2023 02:30:00 PM Scheduled Provider: Location:[facility] Appointment Type:CV OV Future Scheduled TestsUS Breast Left Limited 09/20/23 [facility] Evaluation note Note Date & Type Note Facility Evaluation note No assessment information availa [facility] Work Phone: Hospital course Narrative Note Date & Type Note Facility Hospital course Narrative No data available for this section [facility] Hospital Discharge instructions Note Date & Type Note Facility Hospital Discharge instructions No data available for this section [facility] Progress note Note Date & Type Note Facility Progress note No data available for this section [facility] Summary Purpose Family History No Family History Records Found No data available for this section No data available for this section No Family History Records FoundNo Family History Records FoundNo Family History Records FoundNo Family History Records Found Advance Directives No Advanced Directives Records FoundNo Advanced Directives Records FoundNo Advanced Directives Records FoundNo Advanced Directives Records FoundNo Advanced Directives Records Found Chief Complaint and Reason for Visit Chief Complaint Essential (primary) hypertension Additional Source Comments (unrecognized sect ion and content) No Status Records FoundNo Status Records FoundNo Status Records FoundNo Status Records FoundNo Status Records Found INFORMATION SOURCE (unrecogn ized section and content) DATE CREATED AUTHOR 09/26/2021 [facility] [place] DATE CREATED AUTHOR AUTHOR'S ORGANIZ ATION 01/12/2024 [facility] ([place]) DATE CREATED AUTHOR AUTHOR'S ORGANIZ ATION 09/08/2024 [facility] DATE CREATED AUTHOR AUTHOR'S ORGANIZ ATION 10/10/2024 [facility] DATE CREATED AUTHOR AUTHOR'S ORGANIZ ATION 02/12/2025 [facility] Source Comments (unrecognize d section and content) In the event this informatio n is protected by the Federal Confidentiality of Alcohol and Drug Abuse Patient Records regulations: The Federal rules restrict any use of the information to criminally investigate or prosecute any alcohol or drug abuse patient.[facility] HospitalIn the event this information is protected by the Federal Confidentiality of Alcohol and Drug Abuse Patient Records regulations: The Federal rules restrict any use of the information to criminally investigate or prosecute any alcohol or drug abuse patient.[facility] Goals (unrecognized section and content) Goals may be documented in a n alternate sectionGoals may be documented in an alternate section No data available for this section No data available for this section Care Teams (unrecognized sec tion and content) Team Status: Active Member Role Status Dates No Primary Care Physician Primary Care Provider Active Team Status: Inactive Member Role Status Dates GERMAN BOYER Attending Provider, Referring Provide r Active No Primary Care Physician Primary Care Provider Active FOR RECORDS PERTAINING TO PATIENTS WHO ARE OR HAVE BEEN ENROLLED IN A CHEMICAL DEPENDENCY/SUBSTANCEABUSE PROGRAM, SOME INFORMATION MAY BE OMITTED. This clinical summary was aggregated from multiple sources. Caution should be exercised in using it in the provision of clinical care. This summary normalizes information from multiple sources, and as a consequence, information in this document may materially change the coding, format and clinical context of patient data. In addition, data may be omitted in some cases. CLINICAL DECISIONS SHOULD BE BASED ON THE PRIMARY CLINICAL RECORDS. [facility] [employer] [facility]. provides no warranty or guarantee of the accuracy or completeness of information in this document.
--- OUTSIDE RECORDS SUMMARY | 2025-03-11 18:13 | XMS RPT_ITS | CCD ---
Author Organization [facility] Care Team Providers Care Mail Caller Name Role Phone Unavailable Primary Care Provider Anna SAMUELS KILN CAR REPAIRER, [place] Primary Care Physician [phone] SIL CHESTER, SMOOTH Consulting Unavailable MARTHA CHESTER, DR EBONI Gray Attending Unavailable ABRIL KILN CAR REPAIRER, MS [place] Primary Care Unavailable MARTHA CHESTER, DR EBONI Gray Attending Unavailable GERMAN GARCÍA, EMERSON Primary Care Unavailjazmine GARCÍA, EMERSON Attending Vik SAMUELS KILN CAR REPAIRER, [place] BAR[place] Primary Care Unavailable Unavailable Primary [...] qDay, # 30 tab(s), 3 Refill(s), Pharmacy: [facility]/pharmacy #[id number], 177, cm, 09/12/23 14:57:00 EST, Height, [...] qDay, # 90 tab(s), 3 Refill(s), Pharmacy: [facility]/pharmacy #[id number], 177, cm, 09/12/23 14:57:00 EST, Height, [...] 01/14/2025 11:39:25 AM Ordering Provider: FREDDY LOERA [facility] MAIN CBC-Complete Blood Cnt No Di ffon 10-08-2024 Erythrocyte distribution width (RBC) [Ratio] 13.1 % Normal 11.6-14.6 [facility] Comment on above: Performed By: #### L100.0500, L500.4100, L500.4050, L501.9985 #### [facility] [address] [place], [address] Hematocrit (Bld) [Volume fraction] 41.9 % Normal 40-54 [facility] Comment on above: Performed By: #### L100.0500, L500.4100, L500.4050, L501.9985 #### [facility] [address] [place], [address] Hemoglobin (Bld) [Mass/Vol] 13.6 g/dL Normal 13.0-16.5 [facility] Comment on above: Performed By: #### L100.0500, L500.4100, L500.4050, L501.9985 #### [facility] [address] [place], [address] MCH (RBC) [Entitic mass] 27.8 pg Normal 27.0-32.0 [facility] Comment on above: Performed By: #### L100.0500, L500.4100, L500.4050, L501.9985 #### [facility] [address] [place], [address] MCHC (RBC) [Mass/Vol] 32.5 g/dL Normal 32-36 [facility] Comment on above: Performed By: #### L100.0500, L500.4100, L500.4050, L501.9985 #### [facility] [address] [place], [address] MCV (RBC) [Entitic vol] 85.7 fL Normal 80-94 [facility] Comment on above: Performed By: #### L100.0500, L500.4100, L500.4050, L501.9985 #### [facility] [address] [place], [address] Platelet mean volume (Bld) [Entitic vol] 9.2 fL Normal 6.2-12.0 [facility] Comment on above: Performed By: #### L100.0500, L500.4100, L500.4050, L501.9985 #### [facility] [address] [place], [address] Platelets (Bld) [#/Vol] 291 10*3/uL Normal 150-450 [facility] Comment on above: Performed By: #### L100.0500, L500.4100, L500.4050, L501.9985 #### [facility] [address] [place], [address] RBC (Bld) [#/Vol] 4.89 10*6/uL Normal 4.6-6.2 [facility] Comment on above: Performed By: #### L100.0500, L500.4100, L500.4050, L501.9985 #### [facility] [address] [place], [address] RDW SD 40.3 fl Normal 35.1-43.9 [facility] Comment on above: Performed By: #### L100.0500, L500.4100, L500.4050, L501.9985 #### [facility] [address] [place], [address] WBC (Bld) [#/Vol] 9.3 10*3/uL Normal 4.4-11.0 [facility] Comment on above: Performed By: #### L100.0500, L500.4100, L500.4050, L501.9985 #### [facility] [address] [place], [address] Comprehensive Metabolic Prof ilon 10-08-2024 Albumin [Mass/Vol] 3.9 g/dL Normal 3.2-5.0 [facility] Comment on above: Performed By: #### L100.0500, L500.4100, L500.4050, L501.9985 #### [facility] [address] [place], [address] Albumin/Globul in [Mass ratio] 1.1 {ratio} Normal 0.9-2.4 [facility] Comment on above: Performed By: #### L100.0500, L500.4100, L500.4050, L501.9985 #### [facility] [address] [place], [address] ALK P 37 U/L Low 45-117 [facility] Comment on above: Performed By: #### L100.0500, L500.4100, L500.4050, L501.9985 #### [facility] [address] [place], [address] ALT [Catalytic activity/Vol] 59 U/L Normal 16-61 [facility] Comment on above: Performed By: #### L100.0500, L500.4100, L500.4050, L501.9985 #### [facility] [address] [place], [address] AST [Catalytic activity/Vol] 32 U/L Normal 15-37 [facility] Comment on above: Performed By: #### L100.0500, L500.4100, L500.4050, L501.9985 #### [facility] [address] [place], [address] Bilirubin [Mass/Vol] 0.40 mg/dL Normal 0.20-1.00 [facility] Comment on above: Result Comment: For patients on eltrombo pag therapy, use of Dimension Quentin TBIL is not recommended. Performed By: #### L 100.0500, L500.4100, L500.4050, L501.9985 #### [facility] [address] [place], [address] BUN/CRE 14.3 RATIO Normal 10-20 [facility] Comment on above: Performed By: #### L100.0500, L500.4100, L500.4050, L501.9985 #### [facility] [address] [place], [address] CA,Total 9.1 mg/dL Normal 8.5-10.1 [facility] Comment on above: Performed By: #### L100.0500, L500.4100, L500.4050, L501.9985 #### [facility] [address] [place], [address] Chloride [Moles/Vol] 104 mmol/L Normal 98-107 [facility] Comment on above: Performed By: #### L100.0500, L500.4100, L500.4050, L501.9985 #### [facility] [address] [place], [address] CO2 [Moles/Vol] 24.0 mmol/L Normal 21.0-32.0 [facility] Comment on above: Performed By: #### L100.0500, L500.4100, L500.4050, L501.9985 #### [facility] [address] [place], [address] Creatinine [Mass/Vol] 0.98 mg/dL Normal 0.70-1.30 [facility] Comment on above: Result Comment: The validity of the calc ulated GFR GFRAA in patients over 70 years has not been determined. Clinical correlation is essential. Performed By: #### L 100.0500, L500.4100, L500.4050, L501.9985 #### [facility] [address] [place], [address] EST GFR - AA 106 mL/min Normal >60 [facility] Comment on above: Result Comment: GFR Roderick c Performed By: #### L 100.0500, L500.4100, L500.4050, L501.9985 #### [facility] [address] [place], [address] GAP 11 Normal 5-15 [facility] Comment on above: Performed By: #### L100.0500, L500.4100, L500.4050, L501.9985 #### [facility] [address] [place], [address] GFR/1.73 sq M.predicted among non-blacks MDRD (S/P/Bld) [Vol rate/Area] 87 mL/min/{1.73_m2} Normal >60 [facility] Comment on above: Result Comment: Non- GFR Calc Performed By: #### L 100.0500, L500.4100, L500.4050, L501.9985 #### [facility] [address] [place], [address] Globulin (S) [Mass/Vol] 3.7 g/dL Normal 2.2-4.2 [facility] Comment on above: Performed By: #### L100.0500, L500.4100, L500.4050, L501.9985 #### [facility] [address] [place], [address] Glucose [Mass/Vol] 84 mg/dL Normal 74-106 [facility] Comment on above: Performed By: #### L100.0500, L500.4100, L500.4050, L501.9985 #### [facility] [address] [place], [address] Potassium [Moles/Vol] 4.2 mmol/L Normal 3.5-5.1 [facility] Comment on above: Performed By: #### L100.0500, L500.4100, L500.4050, L501.9985 #### [facility] [address] [place], [address] Sodium [Moles/Vol] 139 mmol/L Normal 136-145 [facility] Comment on above: Performed By: #### L100.0500, L500.4100, L500.4050, L501.9985 #### [facility] [address] [place], [address] T PROT 7.6 g/dL Normal 6.4-8.2 [facility] Comment on above: Performed By: #### L100.0500, L500.4100, L500.4050, L501.9985 #### [facility] [address] [place], [address] Urea nitrogen [Mass/Vol] 14 mg/dL Normal 7-18 [facility] Comment on above: Performed By: #### L100.0500, L500.4100, L500.4050, L501.9985 #### [facility] [address] [place], [address] Hemoglobin A1con 10-08-2024 HbA1c (Bld) [Mass fraction] 5.7 % High 3.8-5.6 [facility] Comment on above: Result Comment: Normal < 5.7 % Prediabetic 5.7 - 6.4 % Diabetic >or= 6.5 % Please note range changes. Performed By: #### L 100.0500, L500.4100, L500.4050, L501.9985 #### [facility] [address] [place], [address] Lipid Profileon 10-08-2024 Cholesterol [Mass/Vol] 156 mg/dL Normal 200 [facility] Comment on above: Result Comment: <200 mg/dL Desirable 200-240 mg/dL Borderline >240 mg/dL High Risk Performed By: #### L 100.0500, L500.4100, L500.4050, L501.9985 #### [facility] [address] [place], [address] Cholesterol in HDL [Mass/Vol] 54 mg/dL Normal [facility] Comment on above: Result Comment: The drugs N-Acetylcystei ne and Metamizole may falsely depress this assay. Reference Range HDL <40 mg/dL Low HDL Cholesterol HDL >or= 60 mg/dL High HDL Cholesterol Performed By: #### L 100.0500, L500.4100, L500.4050, L501.9985 #### [facility] [address] [place], [address] Cholesterol in LDL [Mass/Vol] 68 mg/dL Normal 0-130 [facility] Comment on above: Performed By: #### L100.0500, L500.4100, L500.4050, L501.9985 #### [facility] [address] [place], [address] Cholesterol in VLDL [Mass/Vol] 34 mg/dL Normal 5-40 [facility] Comment on above: Performed By: #### L100.0500, L500.4100, L500.4050, L501.9985 #### [facility] [address] [place], [address] Triglyceride [Mass/Vol] 170 mg/dL Normal [facility] Comment on above: Result Comment: The drugs N-Acetylcystei ne and Metamizole may falsely depress this assay. Serum Triglycerides Reference Interval Normal <150 mg/dL Borderline high 150 - 199 mg/dL High 200 - 499 mg/dL Very High > or = 500 mg/dL Performed By: #### L 100.0500, L500.4100, L500.4050, L501.9985 #### [facility] [address] [place], [place], [address] XR FOOT 3V AP/LAT/OBL LTon 0 09-02-2024 [...] degenerative change. Soft tissue swelling great toe. Scheduling Agent: KANDI Transcribe Date/Time: Sep 05 2024 4:30A Dictated by : DIONNE WHALEN MD This examination was interpreted and the report reviewed and electronically signed by: DIONNE WHALEN MD on Sep 05 2024 4:31AM EST [id number] Normal [facility] CPK Total, Creatine Kinaseon 03-12-2024 CPK TOTAL 132 U/L Normal 39-308 [facility] Comment on above: Performed By: #### L500.4100, L500.4050, L501.3620, L501.9910 #### [facility] [address] [place], [address] Comprehensive Metabolic Prof ilon 03-11-2024 Albumin [Mass/Vol] 3.3 g/dL Normal 3.2-5.0 [facility] Comment on above: Performed By: #### L500.4100, L500.4050, L501.3620, L501.9910 #### [facility] [address] [place], [address] Albumin/Globul in [Mass ratio] 0.8 {ratio} Low 0.9-2.4 [facility] Comment on above: Performed By: #### L500.4100, L500.4050, L501.3620, L501.9910 #### [facility] [address] [place], [address] ALK P 35 U/L Low 45-117 [facility] Comment on above: Performed By: #### L500.4100, L500.4050, L501.3620, L501.9910 #### [facility] [address] [place], [address] ALT [Catalytic activity/Vol] 54 U/L Normal 16-61 [facility] Comment on above: Performed By: #### L500.4100, L500.4050, L501.3620, L501.9910 #### [facility] [address] [place], [address] AST [Catalytic activity/Vol] 28 U/L Normal 15-37 [facility] Comment on above: Performed By: #### L500.4100, L500.4050, L501.3620, L501.9910 #### [facility] [address] [place], [address] Bilirubin [Mass/Vol] 0.50 mg/dL Normal 0.20-1.00 [facility] Comment on above: Result Comment: For patients on eltrombo pag therapy, use of Dimension Quentin TBIL is not recommended. Performed By: #### L 500.4100, L500.4050, L501.3620, L501.9910 #### [facility] [address] [place], [address] BUN/CRE 12.2 RATIO Normal 10-20 [facility] Comment on above: Performed By: #### L500.4100, L500.4050, L501.3620, L501.9910 #### [facility] [address] [place], [address] CA,Total 9.3 mg/dL Normal 8.5-10.1 [facility] Comment on above: Performed By: #### L500.4100, L500.4050, L501.3620, L501.9910 #### [facility] [address] [place], [address] Chloride [Moles/Vol] 107 mmol/L Normal 98-107 [facility] Comment on above: Performed By: #### L500.4100, L500.4050, L501.3620, L501.9910 #### [facility] [address] [place], [address] CO2 [Moles/Vol] 22.0 mmol/L Normal 21.0-32.0 [facility] Comment on above: Performed By: #### L500.4100, L500.4050, L501.3620, L501.9910 #### [facility] [address] [place], [address] Creatinine [Mass/Vol] 0.98 mg/dL Normal 0.70-1.30 [facility] Comment on above: Result Comment: The validity of the calc ulated GFR GFRAA in patients over 70 years has not been determined. Clinical correlation is essential. Performed By: #### L 500.4100, L500.4050, L501.3620, L501.9910 #### [facility] [address] [place], [address] EST GFR - AA 106 mL/min Normal >60 [facility] Comment on above: Result Comment: GFR Roderick c Performed By: #### L 500.4100, L500.4050, L501.3620, L501.9910 #### [facility] [address] [place], [address] GAP 9 Normal 5-15 [facility] Comment on above: Performed By: #### L500.4100, L500.4050, L501.3620, L501.9910 #### [facility] [address] [place], [address] GFR/1.73 sq M.predicted among non-blacks MDRD (S/P/Bld) [Vol rate/Area] 87 mL/min/{1.73_m2} Normal >60 [facility] Comment on above: Result Comment: Non- GFR Calc Performed By: #### L 500.4100, L500.4050, L501.3620, L501.9910 #### [facility] [address] [place], [address] Globulin (S) [Mass/Vol] 4.4 g/dL High 2.2-4.2 [facility] Comment on above: Performed By: #### L500.4100, L500.4050, L501.3620, L501.9910 #### [facility] [address] [place], [address] Glucose [Mass/Vol] 86 mg/dL Normal 74-106 [facility] Comment on above: Performed By: #### L500.4100, L500.4050, L501.3620, L501.9910 #### [facility] [address] [place], [address] Potassium [Moles/Vol] 4.5 mmol/L Normal 3.5-5.1 [facility] Comment on above: Performed By: #### L500.4100, L500.4050, L501.3620, L501.9910 #### [facility] [address] [place], [address] Sodium [Moles/Vol] 138 mmol/L Normal 136-145 [facility] Comment on above: Performed By: #### L500.4100, L500.4050, L501.3620, L501.9910 #### [facility] [address] [place], [address] T PROT 7.7 g/dL Normal 6.4-8.2 [facility] Comment on above: Performed By: #### L500.4100, L500.4050, L501.3620, L501.9910 #### [facility] [address] [place], [address] Urea nitrogen [Mass/Vol] 12 mg/dL Normal 7-18 [facility] Comment on above: Performed By: #### L500.4100, L500.4050, L501.3620, L501.9910 #### [facility] [address] [place], [address] Lipid Profileon 03-11-2024 Cholesterol [Mass/Vol] 129 mg/dL Normal 200 [facility] Comment on above: Result Comment: <200 mg/dL Desirable 200-240 mg/dL Borderline >240 mg/dL High Risk Performed By: #### L 500.4100, L500.4050, L501.3620, L501.9910 #### [facility] [address] [place], [address] Cholesterol in HDL [Mass/Vol] 43 mg/dL Normal [facility] Comment on above: Result Comment: The drugs N-Acetylcystei ne and Metamizole may falsely depress this assay. Reference Range HDL <40 mg/dL Low HDL Cholesterol HDL >or= 60 mg/dL High HDL Cholesterol Performed By: #### L 500.4100, L500.4050, L501.3620, L501.9910 #### [facility] [address] [place], [address] Cholesterol in LDL [Mass/Vol] 68 mg/dL Normal 0-130 [facility] Comment on above: Performed By: #### L500.4100, L500.4050, L501.3620, L501.9910 #### [facility] [address] [place], [address] Cholesterol in VLDL [Mass/Vol] 18 mg/dL Normal 5-40 [facility] Comment on above: Performed By: #### L500.4100, L500.4050, L501.3620, L501.9910 #### [facility] [address] [place], [address] Triglyceride [Mass/Vol] 92 mg/dL Normal [facility] Comment on above: Result Comment: The drugs N-Acetylcystei ne and Metamizole may falsely depress this assay. Serum Triglycerides Reference Interval Normal <150 mg/dL Borderline high 150 - 199 mg/dL High 200 - 499 mg/dL Very High > or = 500 mg/dL Performed By: #### L 500.4100, L500.4050, L501.3620, L501.9910 #### [facility] [address] [place], [address] PSA,Total - Annual Screenon 03-11-2024 PSA,TOT SCREEN 1.03 ng/mL Normal 0.00-4.00 [facility] Comment on above: Result Comment: This test was performed using the TPSA assay method for the [employer] chemistry system. Values obtained with different assay methods cannot be used interchangably. When changing PSA assays in the course of monitoring a patient, additional sequential testing should be carried out to confirm baseline values. Performed By: #### L 500.4100, L500.4050, L501.3620, L501.9910 #### [facility] [address] [place], [address] MA MAMMOGRAM DIAGNOSTIC BILA TERAL W/TOMOon 03-08-2024 MA MAMMOGRAM DIAGNOSTIC BILATERAL W/JEREMY ORIGINAL FROM: [facility] [address] [place] [address] PROCEDURE FOR: VERÓNICA [place] [address] Home: PID#: [id number] Exam#: [id number] : 1975 Age: 47 TO: EMERSON PORTER [facility] [place] [address] [address] EXAMINATION: DIAGNOSTIC BILATERAL MAMMOGRAM WITH TOMOSYNTHESIS, 11/03/2023 [...] LEFT BREAST. FOCAL PAIN LEFT BREAST. BASELINE. General Ophthalmologist: CLEOPATRA TURNER(Khoi)(M) letter sent: Gynecomastia Mammogram BI-RADS: 2 Benign Normal [facility] ([place]) Basophil percentageon 2022 Bilirubin [Mass/Vol] 0.40 mg/dL 0.20-1.00 [facility] Comment on above: For patients on eltrombopag therapy, use of Dimension Quentin TBIL is not recommended. Chloride [Moles/Vol] 107 mmol/L 98-107 [facility] Cholesterol [Mass/Vol] 146 mg/dL <200 [facility] Comment on above: <200 mg/dL Desirable 200-240 mg/dL Borde rline >240 mg/dL High Risk Glucose [Mass/Vol] 93 mg/dL 74-106 [facility] Potassium [Moles/Vol] 4.4 mmol/L 3.5-5.1 [facility] Protein [Mass/Vol] 7.4 g/dL 6.4-8.2 [facility] Sodium [Moles/Vol] 140 mmol/L 136-145 [facility] Triglyceride [Mass/Vol] 219 mg/dL <199 [facility] Comment on above: The drugs N-Acetylcysteine and Metamizol e may falsely depress this assay.Serum Triglycerides Reference Interval Normal <150 mg/dL Borderline high 150 - 199 mg/dL High 200 - 499 mg/dL Very High > or = 500 mg/dL Laboratory - Chemistry and C hemistry - challengeon 04-25-2023 ALP [Catalytic activity/Vol] 38 U/L 45-117 [facility] ALT [Catalytic activity/Vol] 50 U/L 16-61 [facility] CO2 [Moles/Vol] 28.0 mmol/L 21.0-32.0 [facility] Globulin (S) [Mass/Vol] 3.7 g/dL 2.2-4.2 [facility] Urea nitrogen/Creat inine [Mass ratio] 13.1 mg/mg 10-20 [facility] No Panel Informationon 04-25 Estimated GFR (MDRD) Amer 105 mL/min >60 [facility] Comment on above: GFR Calc Estimated GFR (MDRD) Non-Af Amer 86 mL/min >60 [facility] Comment on above: Non- GFR Calc Serum or plasma albumin esperanza urement (mass/volume)on 04-25-2023 Albumin [Mass/Vol] 3.7 g/dL 3.2-5.0 [facility] Serum or plasma albumin/glob ulin mass ratioon 04-25-2023 Albumin/Globul in [Mass ratio] 1.0 {ratio} 0.9-2.4 [facility] Serum or plasma calcium esperanza urement (mass/volume)on 04-25-2023 Calcium [Mass/Vol] 9.3 mg/dL 8.5-10.1 [facility] Serum or plasma cholesterol in HDL measurement (mass/volume)on 04-25-2023 Cholesterol in HDL [Mass/Vol] 44 mg/dL >40 [facility] Comment on above: The drugs N-Acetylcysteine and Metamizol e may falsely depress this assay. Reference Range HDL <40 mg/dL Low HDL Cholesterol HDL >or= 60 mg/dL High HDL Cholesterol Serum or plasma cholesterol in VLDL measurement (mass/volume)on 04-25-2023 Cholesterol in VLDL [Mass/Vol] 44 mg/dL 5-40 [facility] Serum or plasma creatinine m easurement (mass/volume)on 04-25-2023 Creatinine [Mass/Vol] 0.99 mg/dL 0.70-1.30 [facility] Comment on above: The validity of the calculated GFR & GFR AA in patients over 70 years has not been determined. Clinical correlation is essential. Serum or plasma low density lipoprotein (LDL) cholesterol measurement (mass/volume)on 04-25-2023 Cholesterol in LDL [Mass/Vol] 58 mg/dL 0-130 [facility] Serum or plasma urea nitroge n measurement (mass/volume)on 04-25-2023 Urea nitrogen [Mass/Vol] 13 mg/dL 7-18 [facility] Thin prep Papanicolaou smear with manual screeningon 04-25-2023 Thin prep Papanicolaou smear with manual screening 23 U/L 15-37 [facility] Thin prep Papanicolaou smear with manual screening 5 5-15 [facility] No Panel Informationon 05-19 Vitamin D 25-Hydroxy 45.6 ng/mL [facility] Work Phone: Comment on above: Vitamin D 25(OH) Status Range Deficiency <20 ng/mL (50nmol/L) Insufficiency 20 - 30 ng/mL (50 - 75 nmol/L) Sufficiency 30 - 100 ng/mL (75 - 250 nmol/L) Toxicity >100 ng/mL (>250 nmol/L) PHCon 05-28-2021 [facility] DATE OF SERVICE: 08/2020 SUBJECTIVE: This is [...] Heart: Regular. No murmurs, rubs, or gallops. [facility] PATIENT NAME: VERÓNICA HOLLOWAY [facility] [address] MEDICAL REC #: [id number] [place] [address] [facility] REPORT [facility] PHYSICIAN IMPRESSION: Viral upper respiratory infection. PLAN: Bromfed DM syrup 2 teaspoons q.6 h. p.r.n., Tylenol, Motrin, rest, fluids, and follow up with primary care if not improving in 4 to 5 days. Yanick Salgado MD /[id number] SSI File#: [id number] END OF DOCUMENT / CHANGE LOG FOLLOWS Last Edited By [employer]. Signed By Yanick Salgado MD #Yanick Joseph MD #MANAN on 06/01/2021 08:34 ET on 06/01/2021 08:34 ET Revision Number - 2 Verified/Reviewed by 06/01/21 0835 MANAN [facility] PATIENT NAME: VERÓNICA HOLLOWAY [address] [facility] [address] MEDICAL REC #: [id number] [place] [address] [facility] REPORT [facility]ARE PHYSICIAN Normal [facility] REPORT [facility] And [facility] Encounter Date Encounter Type Care Provider Facility Start: 02-06-2025 ambulatory EMERSON Arthur SILVERER-MAINTENANCE SHOP CLERK Facility:A Start: 01-14-2025 End: 01-14-2025 ambulatory FREDDY LOERA DO Facility:A Start: 11-29-2024 ambulatory FREDDY LOERA DO Facility:A Start: 10-08-2024 ambulatory Health Risk Assessment Facility:[facility] Start: 09-02-2024 ambulatory FRANCIS ASKEW Faci lity:[phone] Start: 09-02-2024 End: 09-02-2024 Subsequent hospital visit by physician Brianne [facility] Work Phone: [facility] Start: 03-11-2024 End: 03-11-2024 ambulatory NEY CADET Facility:[facility] Start: 01-04-2024 End: 01-05-[address] EBONI THOMAS MD Facility:A Start: 11-03-2023 End: 11-04-2023 ambulatory EMERSON PORTER SILVERER-MAINTENANCE SHOP CLERK Facility:A Start: 11-03-2023 End: 11-03-2023 Patient encounter procedure EMERSON PORTER SILVERER-MAINTENANCE SHOP CLERK [facility] Start: 09-29-2023 End: 09-30-2023 ambulatory SMOOTH MUJICA MD Facility:A Start: 09-29-2023 End: 09-29-[address] EBONI THOMAS MD [facility] Start: 04-25-2023 End: 04-25-2023 ambulatory [facility] Work Phone: Start: 04-25-2023 End: 04-25-2023 Patient encounter procedure [facility] Spec[facility] Work Phone: Start: 05-19-2022 End: 05-19-2022 ambulatory [facility] Work Phone: Start: 05-19-2022 End: 05-19-2022 Patient encounter procedure [facility] Specimen Start: 05-31-2021 Patient encounter procedure Yanick Salgado MD Work Phone: [facility] Start: 05-31-2021 Progress Note Yanick adams MD Work Phone: [facility] Plan of Treatment Date Care Activity Detail Author Start: 04-28-2024 Covid-19 Vaccine () Covid-19 Vaccine () [facility] Start: 04-28-2024 Influenza vaccination Influenza Vacc ine (#1) [facility] Start: 2022 Diabetes Screening Diabetes Screenin g [facility] Start: 2022 Screening for malign ant neoplasm of colon [facility] Start: 06-13-2019 Urine microalbumin profile DTa P,Tdap,Td Vaccine (2 - Td or Tdap) [facility] Start: 2012 Lipid panel Lipid Screening [facility] Start: 1996 Hepatitis B Vaccine (1 of 3 - 19+ 3-dose series) Hepatitis B Vaccine (1 of 3 - 19+ 3-dose series) [facility] Start: 12-13-1995 Anxiety Screening Anxiety Screening [facility] Start: 12-13-1995 Depression Screening Depression Scre encahse [facility] Start: 12-13-1995 Hepatitis C screening Hepatitis C Sc adela [facility] Start: 12-13-1995 HIV screening HIV Screening [facility] Immunizations Immunization Date Immunization Notes Care Provider Fa cility 06-29-2022 influenza virus vacc ine, unspecified formulation Xr Mather Work Phone: [facility] Payers Date Payer Category Payer Unknown MMO MMO [employer] [id number] 2024-Present [phone] [address] [place] [address] Indemnity [id number] 2024 Self-pay 2023 Unknown [id number] 1977 Unknown [id number] 1977 Unknown [id number] 1977 Unknown [id number] 1977 Unknown [id number] 1977 Unknown [id number] 1977 Unknown [id number] Unknown [id number] Unknown [id number] Social History Date Type Detail Facility Tobacco smoking status NHIS Tobacco smoking consumption unknown [facility] Start: 1975 Sex Assigned At Not on file [facility] Start: 1975 Sex Assigned At Male [facility] Start: 09-12-2023 Tobacco smoking status Never smoked tobacco (finding) Derek Rivasjohn [facility] Gender identity Not on file [facility] inic History of Present illness Narrative 09-02-2024 [...] PATIENT PRESENTS WITH AN IMPLANTABLE OR ATTACHED CAMPUS EXECUTIVE DIRECTOR: No RADIOLOGY DEPARTMENT: General X-ray: Exam(s) Completed: Lower Extremity X-Ray(s): Foot, Left PERIPHERAL IV DATA: Not applicable SIGNED BY: RT Clinton(Khoi) September 02, 2024 5:40 PM documented in this encounter [facility] Progress note 09-02-2024 Note Date & Type Note Facility 09-02-2024 Note HNO ID: [id number] Author: SHEELA FENG RT(Khoi) Service: Radiology Author [...] PATIENT PRESENTS WITH AN 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 Yanick Salgado MD /[id number] SSI File#: [id number] END OF DOCUMENT / CHANGE LOG FOLLOWS Last Edited By Elec. Signed By Yanick Salgado MD #HUDMA Yanick Salgado MD #HUDMA on 06/01/2021 08:34 ET on 06/01/2021 08:34 ET Revision Number - 2 ^^^ Verified/Reviewed by 06/01/21 Iveth HINKLE [facility] PATIENT NAME: VERÓNICA HOLLOWAY [address] [place]quez MEDICAL REC #: [id number] [place] [address] [facility] STATCARE PHYSICIAN documented in this encounter [facility] Evaluation + Plan note Radiology Note Date & Type Note Facility Evaluation + Plan note Future Appointments Appointment Date:10/31/2023 08:00:00 AM Scheduled Provider: Location:[facility] Appointment Type:MA Mammogram Diagnostic Left w/ Jeremy Appointment Date:10/31/2023 08:30:00 AM Scheduled Provider: Location:[facility] Appointment Type:US Breast Left Limited Future Scheduled TestsMA Mammo Diagnostic Left w/ Jeremy 10/31/23US Breast Left Limited 09/20/23US Breast Left Limited 10/31/23 [facility] Evaluation + Plan note Radiology Note Date & Type Note Facility Evaluation + Plan note Future Appointments Appointment Date:12/06/2023 02:30:00 PM Scheduled Provider: Location:[facility] Appointment Type:CV OV Future Scheduled TestsUS Breast Left Limited 09/20/23 [facility] Evaluation note Note Date & Type Note Facility Evaluation note No assessment information availa [facility] Work Phone: Hospital course Narrative Note Date & Type Note Facility Hospital course Narrative No data available for this section [facility] Hospital Discharge instructions Note Date & Type Note Facility Hospital Discharge instructions No data available for this section [facility] Progress note Note Date & Type Note Facility Progress note No data available for this section [facility] Summary Purpose Family History No [...] section and content) DATE CREATED AUTHOR 09/26/2021 [facility] Mather DATE CREATED AUTHOR AUTHOR'S ORGANIZ ATION 01/12/2024 [facility] ([place]) DATE CREATED AUTHOR AUTHOR'S ORGANIZ ATION 09/08/2024 [facility] DATE CREATED AUTHOR AUTHOR'S ORGANIZ ATION 10/10/2024 [facility] DATE CREATED AUTHOR AUTHOR'S ORGANIZ ATION 02/12/2025 [facility] Source Comments (unrecognize d section and content) In the event this informatio n is protected by the Federal Confidentiality of Alcohol and Drug Abuse Patient Records regulations: The Federal rules restrict any use of the information to criminally investigate or prosecute any alcohol or drug abuse patient.[facility] the event this information is protected by the Federal Confidentiality of Alcohol and Drug Abuse Patient Records regulations: The Federal rules restrict any use of the information to criminally investigate or prosecute any alcohol or drug abuse patient.[facility] Goals (unrecognized section and content) Goals may [...] BE BASED ON THE PRIMARY CLINICAL RECORDS. [facility]. provides no warranty or guarantee of the accuracy or completeness of information in this document.
== END | disposition home or self-care (01) ==
LOC: LABSPEC 09:40
DX: I10 Essential (primary) hypertension (principal); E78.5 Hyperlipidemia, unspecified; M10.9 Gout, unspecified; Z12.5 Encounter for screening for malignant neoplasm of prostate
CPT/HCPCS: 80053; 80061; 84153; 84550; G0103